=== PATIENT | female | born 1985 | race Caucasian/White ===

== ENCOUNTER 2017-01-15 00:22 | Inpatient (IN) | payer OTHER ==
[~2017-01-15] VITALS: Ht 167.6 cm; Wt 72.7 kg
[~2017-01-15 00:22] MED LIST: IBUP200T48 PO; OXYC-302 PO
[2017-01-15 00:40] VITALS: BP 118/84
[2017-01-15] MEDS ORDERED: OXYTOCIN 30U/ 0.9% NaCL 500ML 500 ML ONE ×2 (02:29→03:36)
[2017-01-15] MEDS ORDERED: NEWBORN KIT ONE (02:29)
[2017-01-15] MEDS ORDERED: LIDOCAINE 1%, 20ML ONE (03:14)
[2017-01-15] MEDS ORDERED: MISOPROSTOL 200 MCG TABLET ONE (03:14)
[2017-01-15] MEDS ORDERED: OXYTOCIN 10 UNITS/ML, 1ML ONE (03:36)
[2017-01-15] MEDS ORDERED: IBUPROFEN 600 MG TABLET ONE (03:55)
[2017-01-15] MEDS ORDERED: LACTATED RINGERS 1,000 ML IV SCH (03:56)
[2017-01-15] MEDS ORDERED: OXYTOCIN 30U/ 0.9% NaCL 500ML 500 ML IV ONE (03:56)
[2017-01-15] MEDS ORDERED: FENTANYL PF 100 MCG/2ML IVPush PRN (04:00)
[2017-01-15] MEDS ORDERED: OXYTOCIN 30U/ 0.9% NaCL 500ML 500 ML IV SCH (04:19)
[2017-01-15] MEDS ORDERED: RHOGAM FROM BLOOD BANK 1 NOTE EA IM/IV ONE (04:30)
[2017-01-15] MEDS ORDERED: METHYLERGONOVINE 0.2 MG/ML IM PRN (04:30)
[2017-01-15] MEDS ORDERED: METOCLOPRAMIDE 5 MG/ML, 2ML IV PRN (04:30)
[2017-01-15] MEDS ORDERED: DIPH,PERTUSS(ACELL),TET VAC/PF NC IM-VACC PRN (04:30)
[2017-01-15] MEDS ORDERED: BISACODYL 10 MG SUPP PR PRN (04:30)
[2017-01-15] MEDS ORDERED: CARBOPROST TROMETHAMINE 250 MCG/ML, 1ML IM PRN (04:30)
[2017-01-15] MEDS ORDERED: ONDANSETRON 2MG/ML, 2ML IV PRN (04:30)
[2017-01-15] MEDS ORDERED: HYDROcodone/APAP 10/325 MG TABLET PO PRN (04:30)
[2017-01-15] MEDS ORDERED: MEASLES,MUMPS&RUBELLA VACC/PF 0.5 ML SQ PRN (04:30)
[2017-01-15] MEDS ORDERED: MAGNESIUM HYDROXIDE 8%, 30ML UDC PO PRN (04:30)
[2017-01-15] MEDS ORDERED: GLYCERIN ADULT SUPP PR PRN (04:30)
[2017-01-15] MEDS ORDERED: MISOPROSTOL 200 MCG TABLET PR PRN (04:30)
[2017-01-15] MEDS ORDERED: CALCIUM CARBONATE 500 MG TAB.CHEW PO PRN (04:30)
[2017-01-15] MEDS ORDERED: ACETAMINOPHEN 325 MG TABLET PO PRN ×2 (04:30)
[2017-01-15 05:37] VITALS: BP 106/68
[2017-01-15 07:06] VITALS: BP 100/63
[2017-01-15] MEDS: DOCUSATE 100 MG CAPSULE PO PRN ×2 (08:56→22:49)
[2017-01-15] MEDS: HYDROcodone/APAP 5/325 TABLET PO PRN ×2 (08:56→18:15)
[2017-01-15] MEDS ORDERED: PRENATAL VIT/IRON/FA 1 EACH TABLET PO SCH (09:00)
[2017-01-15] MEDS: IBUPROFEN 600 MG TABLET PO PRN ×2 (14:10→22:49)
[2017-01-15 19:32] VITALS: BP 103/63
[2017-01-16] MEDS: IBUPROFEN 600 MG TABLET PO PRN (05:33)
[2017-01-16 07:55] VITALS: BP 97/54
[2017-01-16] MEDS ORDERED: DOCU-30 PO (08:28)
[2017-01-16] MEDS: HYDROcodone/APAP 5/325 TABLET PO PRN (10:51)
== END 2017-01-16 11:44 | disposition home or self-care (01) | DRG 775 ==
LOC: LDOP 00:22 → LDIP 02:34 → 2NW 05:21
PROVIDERS: ADMIT Student in an Organized Health Care Education/Training Program; ATTEND Student in an Organized Health Care Education/Training Program
PROC: 10E0XZZ Delivery of Products of Conception, External Approach (ICD-10-PCS; principal; 2017-01-15)
PROC: 0HQ9XZZ Repair Perineum Skin, External Approach (ICD-10-PCS; 2017-01-15)
DX: O34.219 Maternal care for unspecified type scar from previous cesarean delivery (principal); O99.12 Other diseases of the blood and blood-forming organs and certain disorders involving the immune mechanism complicating childbirth; Z37.0 Single live birth; D69.6 Thrombocytopenia, unspecified; Z82.5 Family history of asthma and other chronic lower respiratory diseases; Z82.49 Family history of ischemic heart disease and other diseases of the circulatory system; Z80.0 Family history of malignant neoplasm of digestive organs; O99.814 Abnormal glucose complicating childbirth; E74.39 Other disorders of intestinal carbohydrate absorption; Z23 Encounter for immunization; O69.81X0 Labor and delivery complicated by cord around neck, without compression, not applicable or unspecified; O70.0 First degree perineal laceration during delivery; Z3A.39 39 weeks gestation of pregnancy; O62.3 Precipitate labor
CPT/HCPCS: 36415; 85025; 86850; 86900; J2590